=== PATIENT | female | born 2005 | race Hispanic/Latino ===

== ENCOUNTER → 2023-08-26 11:16 | Outpatient (REF) | payer OTHER, SELFPAY ==
[2023-08-26 12:16] LABS: Hematocrit 41.6 % (37.0-47.0); Hemoglobin 14.8 g/dL (12.0-16.0); Mean Corp Hgb Conc. 35.6 g/dL (33.0-37.0); Mean Corpuscular Hgb 29.4 pg (27.0-31.0); Mean Corpuscular Volume 82.5 fL (81.0-99.0); Mean Platelet Volume 11.8 fL (7.4-10.4); Platelet Count 237 10^3/uL (130-400); Red Blood Cell Count 5.04 10^6/uL (4.20-5.40); Red Cell Dist. Width 12.5 % (11.5-14.5); White Blood Cell Count 6.9 10^3/uL (4.8-10.8)
[2023-08-26 12:41] LABS: ALT (SGPT) 37 U/L (0-35); AST (SGOT) 31 U/L (14-36); Albumin 4.5 g/dl (3.5-5.0); Alkaline Phosphatase 71 U/L (38-126); Blood Urea Nitrogen 12 mg/dl (7-17); Calcium 9.7 mg/dl (8.4-10.2); Carbon Dioxide 26 mmol/L (22-30); Chloride 101 mmol/L (98-107); Glucose 80 mg/dl (70-99); Potassium 4.1 mmol/L (3.5-5.1); Sodium 137 mmol/L (135-145); Total Bilirubin 0.9 mg/dl (0.2-1.3); Total Protein 7.6 g/dl (6.3-8.2); eGFR > 60.00
[2023-08-26 12:58] LABS: Free T4 1.24 ng/dl (0.78-2.19)
[2023-08-26 13:12] LABS: TSH 1.64 uIU/ml (0.47-4.68)
[2023-08-26 14:46] LABS: Glycohemoglobin (HgbA1c) 5.4 % (4.0-5.6)
== END ==
LOC: REG 11:16
PROVIDERS: ATTENDING PHYSICIAN Nurse Practitioner Adult Health
DX: B35.4 Tinea corporis (principal); B35.6 Tinea cruris; Z83.3 Family history of diabetes mellitus; Z00.00 Encounter for general adult medical examination without abnormal findings; G47.00 Insomnia, unspecified
CPT/HCPCS: 36415; 80053; 83036; 84439; 84443; 85027